=== PATIENT | male | born 1995 | race African-American/Black ===

== ENCOUNTER 2018-12-19 01:10 | Emergency (ER) | payer OTHER ==
[2018-12-19 01:17] VITALS: BP 137/77; PULSE 103; TEMP 99.4; BMI 42.0
--- NOTE | 2018-12-19 01:18 | PDOC ---
History of Present Illness - General Chief Complaint: Sore Throat Stated Complaint: SORE THROAT Time Seen by Provider: 12/19/18 01:13 History Source: Patient Exam Limitations: No Limitations - History of Present Illness Initial Comments: 12/19/18 01:15 This is a 23-year-old male who comes in complaining of sore throat times one day. Patient denies any fevers or chills. Patient is concerned that he has strep throat because there is pus on his tonsils. Patient denies any other complaints. Allergies: as per nursing notes Past Medical History: none Social history: Lives with family. No smoking. No alcohol. No illicit drugs. Surgical history: None General: No fevers or chills, no weakness, no weight loss HEENT: No change in vision. + sore throat,. No ear pain CardioVascular: no chest discomfort. No shortness of breath Respiratory:No cough, or wheezing. Gastrointestinal: no nausea, vomiting, diarrhea or constipation, No rectal bleeding Genitourinary: No dysuria, hematuria, or frequency Musculoskeletal: No joint or muscle pain or swelling Neurologic: No headache, vertigo, dizziness or loss of consciousness Psychiatric: nor depression Skin: No rashes or easy bruising Endocrine: no increased thirst or abnormal weight change Allergic: no skin or latex allergy All other systems reviewed and normal GENERAL: The patient is awake, alert, and fully oriented, in no acute distress. HEAD: Normal with no signs of trauma. THROAT: There is an exudative pharyngitis of the posterior oropharynx. Tonsils are slightly enlarged. There is small bilateral cerumen tubular lymphadenopathy. There is no nuchal rigidity or meningeal signs. EYES: Pupils equal, round and reactive to light, extraocular movements intact, sclera anicteric, conjunctiva clear. EXTREMITIES:atraumatic, Normal range of motion, no edema. NEUROLOGICAL: Normal speech, normal gait. PSYCH: Normal mood, normal affect. SKIN: Warm, Dry, normal turgor, no rashes or lesions noted. Assessment plan: This is a 21-year-old male comes in complaining of a sore throat for 1 day. Patient had a rapid strep that was negative patient was reassured that this most likely viral however a Monospot was also sent. Patient has a primary care doctor to follow up with. Patient discharged home with his mother. Past History - Past Medical History Allergies/Adverse Reactions: Allergies Allergy/AdvReac Type Severity Reaction Status Date / Time No Known Allergies Allergy Unverified 12/19/18 01:12 Home Medications: Ambulatory Orders Albuterol Sulfate [Proair Hfa] 8.5 gm IH PRN PRN 12/19/18 *DC/Admit/Observation/Transfer Diagnosis at time of Disposition: Viral pharyngitis - Discharge Dispostion Disposition: HOME Condition at time of disposition: Stable Decision to Admit order: No - Referrals - Patient Instructions Additional Instructions: Tylenol or Motrin as needed for pain. Your mono test will not be available until next week. Return to the emergency department immediately with ANY new, persistent or worsening symptoms. Continue any medications as previously prescribed by your physician. You should follow up with your primary doctor as soon as possible regarding today's emergency department visit. . Please make sure your doctor reviews the results of your emergency evaluation. Thank you for coming to the Emergency Department today for your care. It was a pleasure to see you today. Please note that your evaluation is INCOMPLETE until you follow-up with your doctor. - Post Discharge Activity Forms/Work/School Notes: Back to Work
[2018-12-19] MEDS ORDERED: IBUPROFEN 600 MG TABLET (FP) PO ONE ×2 (02:01→02:02)
== END 2018-12-19 02:05 | disposition home or self-care (01) ==
LOC: FER 01:10
DX: J02.8 Acute pharyngitis due to other specified organisms (principal)
CPT/HCPCS: 36415; 86308; 87070; 87077; 87880; 99281-25

== ENCOUNTER 2023-02-12 23:31 | Emergency (ER) | payer OTHER ==
[2023-02-12 23:38] VITALS: BP 153/108; PULSE 86; RESP 18; TEMP 98.8; BMI 53.8
== END 2023-02-13 01:00 | disposition home or self-care (01) ==
LOC: FER 23:31
DX: R42 Dizziness and giddiness (principal)
CPT/HCPCS: 99282-25

== ENCOUNTER 2024-05-30 07:04 | Emergency (ER) | payer OTHER ==
[2024-05-30 07:16] VITALS: BP 149/98; PULSE 73; RESP 20; TEMP 98.2; BMI 53.8
[2024-05-30] MEDS ORDERED: ACETAMINOPHEN 325 MG TABLET (FP) ONE (07:45)
[2024-05-30] MEDS: ACETAMINOPHEN 325 MG TABLET (FP) PO ONE (07:52)
== END 2024-05-30 07:58 | disposition home or self-care (01) ==
LOC: FER 07:04
DX: R51.9 Headache, unspecified (principal); B34.9 Viral infection, unspecified; R05.9 Cough, unspecified; R09.81 Nasal congestion
CPT/HCPCS: 99283-25